=== PATIENT | female | born 1990 | race Caucasian/White ===

== ENCOUNTER 2020-08-28 05:26 | Day surgery (SDC) | payer OTHER, SELFPAY ==
[~2020-08-28] VITALS: Ht 165.1 cm; Wt 78.5 kg
[~2020-08-28 05:26] MED LIST: ONDANSETRON 4 MG/2 ML VIAL IVP PRN; diphenhydrAMINE 50 MG/ML VIAL IVP PRN
[2020-08-28 06:41] LABS: APPEARANCE,URINE HAZY (CLEAR); BILIRUBIN,URINE 1+ (NEGATIVE); BLOOD, URINE NEGATIVE (NEGATIVE); COLOR,URINE YELLOW (YELLOW); LEUKOCYTE ESTERASE ,URINE NEGATIVE (NEGATIVE); NITRITE, URINE NEGATIVE (NEGATIVE); UGLUCOSE NEGATIVE (NEGATIVE)
[2020-08-28] MEDS ORDERED: BUPIVACAINE-MPF 0.25% 30 ML VIAL INJ ONE (07:27)
[2020-08-28] MEDS ORDERED: NEOSTIGMINE 1:1000 10 MG/10 ML VIAL ONE (07:48)
[2020-08-28] MEDS ORDERED: KETOROLAC 30 MG/ML VIAL ONE (07:48)
[2020-08-28] MEDS ORDERED: SEVOFLURANE 250 ML BTL INH ONE (07:48)
[2020-08-28] MEDS ORDERED: GLYCOPYRROLATE 0.2 MG/ML VIAL ONE (07:48)
[2020-08-28] MEDS ORDERED: ROCURONIUM 50 MG/5 ML VIAL IV ONE (07:48)
[2020-08-28] MEDS ORDERED: METOCLOPRAMIDE 10 MG/2 ML INJ VIAL ONE (07:48)
[2020-08-28] MEDS ORDERED: fentaNYL citrate 0.05 MG/ML VIAL ONE (07:48)
[2020-08-28] MEDS ORDERED: PROPOFOL 200 MG/20 ML VIAL IV ONE (07:48)
[2020-08-28] MEDS ORDERED: DEXAMETHASONE 4 MG/ML VIAL ONE (07:48)
[2020-08-28] MEDS ORDERED: SUCCINYLCHOLINE CHLORIDE 200 MG/10 ML VIAL IVP ONE (07:48)
[2020-08-28] MEDS ORDERED: oxyCODONE/APAP 5/325 MG 1 TAB TAB PO PRN (08:50)
[2020-08-28] MEDS ORDERED: MEPERIDINE 25 MG/ML SYR IVP PRN ×2 (09:05→09:25)
[2020-08-28] MEDS ORDERED: ONDANSETRON 4 MG/2 ML VIAL IVP PRN (09:05)
[2020-08-28] MEDS ORDERED: HYDROmorphone 1 MG/ML AMP IVP PRN (09:05)
[2020-08-28] MEDS ORDERED: MEPERIDINE 25 MG/ML SYR ONE (09:09)
== END 2020-08-28 10:45 | disposition home or self-care (01) ==
LOC: MDS 05:26 → MMU 05:32 → MDS 10:45
PROVIDERS: ATTEND Obstetrics & Gynecology
DX: N92.6 Irregular menstruation, unspecified (principal); N80.0 Endometriosis of uterus; R93.89 Abnormal findings on diagnostic imaging of other specified body structures; R10.2 Pelvic and perineal pain; N73.6 Female pelvic peritoneal adhesions (postinfective); J45.909 Unspecified asthma, uncomplicated; Z90.89 Acquired absence of other organs; Z88.1 Allergy status to other antibiotic agents; Z88.2 Allergy status to sulfonamides; Z88.8 Allergy status to other drugs, medicaments and biological substances; Z98.890 Other specified postprocedural states; Z20.828 Contact with and (suspected) exposure to other viral communicable diseases
CPT/HCPCS: 36415; 58558; 58662; 81003; 81025; 86886; 86900; 86901; 87086; J0330; J1100; J1885; J2175; J2704; J2710; J2765; J3010; J3490; J7030; J7120; U0003; 88305